=== PATIENT | male | born 1950 | race Two or more races ===

== ENCOUNTER 2017-03-10 12:50 | Outpatient (CLI) | payer BC, OTHER | END 2017-03-10 23:59 | disposition home or self-care (01) | LOC: WOU 12:50 | PROVIDERS: ATTEND Specialist | DX: I87.312 Chronic venous hypertension (idiopathic) with ulcer of left lower extremity (principal); L97.822 Non-pressure chronic ulcer of other part of left lower leg with fat layer exposed; I25.10 Atherosclerotic heart disease of native coronary artery without angina pectoris; Z95.1 Presence of aortocoronary bypass graft; Z86.73 Personal history of transient ischemic attack (TIA), and cerebral infarction without residual deficits | CPT/HCPCS: A6253; A6402; A6452; G0463 ==

== ENCOUNTER 2017-03-17 10:00 | Outpatient (CLI) | payer BC, OTHER | END 2017-03-17 23:59 | disposition home or self-care (01) | LOC: WOU 10:00 | PROVIDERS: ATTEND Specialist | DX: I87.312 Chronic venous hypertension (idiopathic) with ulcer of left lower extremity (principal); L97.822 Non-pressure chronic ulcer of other part of left lower leg with fat layer exposed; I89.0 Lymphedema, not elsewhere classified; I25.10 Atherosclerotic heart disease of native coronary artery without angina pectoris; Z95.1 Presence of aortocoronary bypass graft; Z95.5 Presence of coronary angioplasty implant and graft; Z86.73 Personal history of transient ischemic attack (TIA), and cerebral infarction without residual deficits | CPT/HCPCS: 11042; A6210 ×2; A6253 ×2; A6402 ×3; A6452 ==

== ENCOUNTER 2017-03-18 12:14 | Outpatient (CLI) | payer BC, OTHER | END 2017-03-18 23:59 | disposition home or self-care (01) | LOC: RAD 12:14 | PROVIDERS: ATTEND Specialist | DX: L98.499 Non-pressure chronic ulcer of skin of other sites with unspecified severity (principal); M87.862 Other osteonecrosis, left tibia; R60.0 Localized edema | CPT/HCPCS: 73718-TC ==

== ENCOUNTER 2017-03-24 11:30 | Outpatient (CLI) | payer BC, OTHER | END 2017-03-24 23:59 | disposition home or self-care (01) | LOC: WOU 11:30 | PROVIDERS: ATTEND Specialist | PROC: 0HBLXZX Excision of Left Lower Leg Skin, External Approach, Diagnostic (ICD-10-PCS; principal; 2017-03-24) | DX: I87.312 Chronic venous hypertension (idiopathic) with ulcer of left lower extremity (principal); L97.822 Non-pressure chronic ulcer of other part of left lower leg with fat layer exposed; I25.10 Atherosclerotic heart disease of native coronary artery without angina pectoris; Z95.1 Presence of aortocoronary bypass graft; Z95.5 Presence of coronary angioplasty implant and graft; Z86.73 Personal history of transient ischemic attack (TIA), and cerebral infarction without residual deficits; M87.862 Other osteonecrosis, left tibia; I89.0 Lymphedema, not elsewhere classified | CPT/HCPCS: 11042; 11100; A6210 ×2; A6253; A6402; J3490; 11045; 88305-TC; 88312-TC ==

== ENCOUNTER 2017-03-31 11:10 | Outpatient (CLI) | payer BC, OTHER | END 2017-03-31 23:59 | disposition home or self-care (01) | LOC: WOU 11:10 | PROVIDERS: ATTEND Specialist | DX: I87.312 Chronic venous hypertension (idiopathic) with ulcer of left lower extremity (principal); L97.822 Non-pressure chronic ulcer of other part of left lower leg with fat layer exposed; I89.0 Lymphedema, not elsewhere classified; I25.10 Atherosclerotic heart disease of native coronary artery without angina pectoris; L95.8 Other vasculitis limited to the skin; M87.00 Idiopathic aseptic necrosis of unspecified bone; Z95.1 Presence of aortocoronary bypass graft; Z86.73 Personal history of transient ischemic attack (TIA), and cerebral infarction without residual deficits | CPT/HCPCS: 99213; A6210; A6253; A6402; G0463 ==

== ENCOUNTER 2017-04-07 11:30 | Outpatient (CLI) | payer BC, OTHER | END 2017-04-07 23:59 | disposition home or self-care (01) | LOC: WOU 11:30 | PROVIDERS: ATTEND Specialist | DX: I87.313 Chronic venous hypertension (idiopathic) with ulcer of bilateral lower extremity (principal); L97.822 Non-pressure chronic ulcer of other part of left lower leg with fat layer exposed; L97.812 Non-pressure chronic ulcer of other part of right lower leg with fat layer exposed; L95.8 Other vasculitis limited to the skin; I25.10 Atherosclerotic heart disease of native coronary artery without angina pectoris; I89.0 Lymphedema, not elsewhere classified; M87.00 Idiopathic aseptic necrosis of unspecified bone; Z95.5 Presence of coronary angioplasty implant and graft; Z86.73 Personal history of transient ischemic attack (TIA), and cerebral infarction without residual deficits | CPT/HCPCS: A6210; A6253; A6402; G0463 ==

== ENCOUNTER 2017-04-21 11:30 | Outpatient (CLI) | payer BC, OTHER | END 2017-04-21 23:59 | disposition home or self-care (01) | LOC: WOU 11:30 | PROVIDERS: ATTEND Specialist | DX: I87.313 Chronic venous hypertension (idiopathic) with ulcer of bilateral lower extremity (principal); L97.822 Non-pressure chronic ulcer of other part of left lower leg with fat layer exposed; L97.812 Non-pressure chronic ulcer of other part of right lower leg with fat layer exposed; I25.10 Atherosclerotic heart disease of native coronary artery without angina pectoris; L59.8 Other specified disorders of the skin and subcutaneous tissue related to radiation; M87.00 Idiopathic aseptic necrosis of unspecified bone; I89.0 Lymphedema, not elsewhere classified; Z95.5 Presence of coronary angioplasty implant and graft; Z86.73 Personal history of transient ischemic attack (TIA), and cerebral infarction without residual deficits; Z79.899 Other long term (current) drug therapy | CPT/HCPCS: A6210; A6253; A6402; G0463 ==

== ENCOUNTER 2017-05-05 11:00 | Outpatient (CLI) | payer BC, OTHER | END 2017-05-05 23:59 | disposition home or self-care (01) | LOC: WOU 11:00 | PROVIDERS: ATTEND Specialist | DX: I87.312 Chronic venous hypertension (idiopathic) with ulcer of left lower extremity (principal); L97.822 Non-pressure chronic ulcer of other part of left lower leg with fat layer exposed; Z86.73 Personal history of transient ischemic attack (TIA), and cerebral infarction without residual deficits; I25.10 Atherosclerotic heart disease of native coronary artery without angina pectoris; Z95.1 Presence of aortocoronary bypass graft; I89.0 Lymphedema, not elsewhere classified; L95.8 Other vasculitis limited to the skin; Z79.899 Other long term (current) drug therapy | CPT/HCPCS: 11042; 11045; A6210; A6253 ×2; A6402; A6452 ==

== ENCOUNTER 2017-05-19 13:00 | Outpatient (CLI) | payer BC, OTHER ==
[~2017-05-19 13:00] MED LIST: ONDANSETRON HCL/PF 4 MG/2 ML VIAL ONE
== END 2017-05-19 23:59 | disposition home or self-care (01) ==
LOC: WOU 13:00
PROVIDERS: ATTEND Specialist
DX: I87.312 Chronic venous hypertension (idiopathic) with ulcer of left lower extremity (principal); L97.822 Non-pressure chronic ulcer of other part of left lower leg with fat layer exposed; I89.0 Lymphedema, not elsewhere classified; I25.10 Atherosclerotic heart disease of native coronary artery without angina pectoris; L59.8 Other specified disorders of the skin and subcutaneous tissue related to radiation; Z86.73 Personal history of transient ischemic attack (TIA), and cerebral infarction without residual deficits; M48.46 Fatigue fracture of vertebra, lumbar region
CPT/HCPCS: 99214; A6210; A6253; A6402; G0463; J2405